=== PATIENT | male | born 1990 | race Caucasian/White ===

== ENCOUNTER 2022-01-19 09:03 | Emergency (ER) | payer BC ==
[~2022-01-19 09:03] MED LIST: Iopamidol 370 76% 100 ML VIAL ONE
[2022-01-19] MEDS ORDERED: Promethazine HCl 25 MG/ML VIAL ONE (09:34)
[2022-01-19] MEDS ORDERED: Sodium Chloride 0.9% 1,000 ML ONE ×3 (09:34→12:44)
[2022-01-19 10:09] LABS: #Basophils 0.1 thou/uL (0.0-0.2); #Lymphocytes 0.3 thou/uL (1.20-3.40); #Monocytes 0.7 thou/uL (0.11-0.59); #Neutrophils 13.5 thou/uL (1.40-6.50); %Basophils 0.8 % (0.0-1.0); %Eosinophils 0.2 % (0.0-10.0); %Lymphocytes 1.8 % (21.0-51.0); %Monocytes 4.5 % (0.0-10.0); %Neutrophils 92.7 % (42.0-75.0); Mean Corpuscular HGB CONC 33.3 g/dL (32.0-36.0); Mean Corpuscular Hemoglobin 28.1 pg (27.0-31.0); Mean Corpuscular Volume 84.4 fL (78.0-98.0); Mean Platelet Volume 7.2 fL (7.4-10.4); Platelet Count 372 thou/uL (130-400); RBC Distribution Width 10.9 % (11.5-14.5); Red Blood Cell (RBC) Count 5.67 mill/uL (4.70-6.10); White Blood Cell (WBC) Count 14.6 thou/uL (4.8-10.8)
[2022-01-19] MEDS ORDERED: Cefepime 2 GM VIAL ONE (10:11)
[2022-01-19] MEDS ORDERED: Sodium Chloride 0.9% 100 ML ONE (10:11)
[2022-01-19 10:30] LABS: ALT (SGPT) 45 U/L (8-55); AST (SGOT) 23 U/L (5-34); Albumin 4.7 g/dL (3.5-5.0); Alkaline Phosphatase 64 U/L (40-110); Anion Gap 17 mmol/L (10-20); BUN (Urea Nitrogen) 27 mg/dL (8.9-20.6); Bilirubin, Total 0.7 mg/dL (0.2-1.2); Calc. Creatinine Clearance 0 mL/min (70-130); Carbon Dioxide 20 mmol/L (22-29); Chloride 103 mmol/L (98-107); Glucose 130 mg/dL (70-105); Potassium 3.8 mmol/L (3.5-5.1); Protein, Total 7.7 g/dL (6.0-8.3); Sodium 136 mmol/L (136-145)
[2022-01-19] MEDS ORDERED: Sodium Chloride 0.9% 500 ML ONE (10:33)
[2022-01-19 10:59] LABS: SARS-CoV-2 NAA Rapid Test Not Detected (NotDetected)
[2022-01-19 11:43] LABS: Bilirubin Negative (Negative); Blood, Urine Negative (Negative); Clarity Clear (Clear); Glucose, Urine (Dipstick) Negative (Negative); Ketone, Urine Negative (Negative); Leukocyte Negative (Negative); Nitrite Negative (Negative); Protein, Urine (Dipstick) Negative (Neg-Trace); Urobilinogen 0.2 mg/dL (Less than 2)
[2022-01-19] MEDS ORDERED: Acetaminophen 500 MG TAB ONE (12:34)
== END 2022-01-19 14:15 | disposition short-term general hospital (02) ==
LOC: NAV ERS 09:03
DX: K52.9 Noninfective gastroenteritis and colitis, unspecified (principal); R07.9 Chest pain, unspecified; R00.0 Tachycardia, unspecified; E78.5 Hyperlipidemia, unspecified; E78.00 Pure hypercholesterolemia, unspecified; Z20.822 Contact with and (suspected) exposure to COVID-19; Z79.899 Other long term (current) drug therapy
CPT/HCPCS: 36415; 71045; 71275; 80053; 81003; 82274; 82550; 83605; 83630; 84484; 85025; 85379; 87040; 87045; 87046; 87427; 87449; 93005; 96365; 96366; 96367; 96374; 96375; J0692; J2550; J3370; J3490; J7030; J7050; Q9967